=== PATIENT | female | born 1950 | race Two or more races ===

== ENCOUNTER 2017-09-06 17:13 | Inpatient (IN) | payer MEDICARE, BC ==
[~2017-09-06] VITALS: Ht 177.8 cm; Wt 129.7 kg
[2017-09-06] MEDS: IPRATROPIUM/ALBUTEROL 0.5-3(2.5)MG/3ML NEB HHN SCH (04:22)
[~2017-09-06 17:13] MED LIST: ALBU18HF2 IH; AMLO2.5T45 PO; ATOR-2 PO; CHOL100044 PO; EMPA25TA PO; FLUO-124 PO; IBUP200C5 PO; LIRA0.6P2 SQ; LORA0.5T2 PO; LOSA1TAB37 PO; METF500T4 PO; MULT-1203 PO; PROP40TA7 PO; TIOT4MIS3 IH
[2017-09-06] MEDS ORDERED: IPRA3AMP9 HHN (18:19)
[2017-09-06] MEDS ORDERED: NA PHOS,M-B/NA PHOS,DI-BA ENEMA 118ML PR PRN (19:45)
[2017-09-06] MEDS ORDERED: LACTULOSE 20G/30ML UDC PO PRN (19:45)
[2017-09-06] MEDS ORDERED: IPRATROPIUM/ALBUTEROL 0.5-3(2.5)MG/3ML NEB HHN PRN (19:45)
[2017-09-06] MEDS ORDERED: DEXTROSE 50% WATER 50ML SYRINGE IV PRN (19:45)
[2017-09-06] MEDS ORDERED: ONDANSETRON HCL 4MG/2ML VIAL IV PRN (19:45)
[2017-09-06] MEDS ORDERED: CLONIDINE 0.1MG TABLET PO PRN (19:45)
[2017-09-06] MEDS ORDERED: ACETAMINOPHEN 650MG SUPP PR PRN (19:45)
[2017-09-06 20:00] VITALS: BP 139/58
[2017-09-06] MEDS: BLOOD SUGAR DIAGNOSTIC STRIP TEST SCH (21:00)
[2017-09-06] MEDS: LOSARTAN POTASSIUM 50 MG TABLET PO SCH (21:58)
[2017-09-06] MEDS: INSULIN LISPRO 100 UNITS/ML SUBCUT SCH (22:03)
[2017-09-06] MEDS: INSULIN DETEMIR UD 100 UNITS/ML SYR SUBCUT SCH (22:04)
[2017-09-07] MEDS: HYDROCODONE/ACETAMINOPHEN 5/325MG TABLET PO PRN ×2 (00:44→21:26)
[2017-09-07] MEDS: IPRATROPIUM/ALBUTEROL 0.5-3(2.5)MG/3ML NEB HHN SCH ×7 (02:16→21:00)
[2017-09-07] MEDS: BLOOD SUGAR DIAGNOSTIC STRIP TEST SCH ×4 (06:29→21:27)
[2017-09-07] MEDS: INSULIN LISPRO 100 UNITS/ML SUBCUT SCH ×4 (07:03→21:28)
[2017-09-07 07:23] LABS: HEMATOCRIT 34.9 % (36.0-48.0); HEMOGLOBIN 11.1 g/dL (12.0-16.0); MEAN CORPUSCULAR HEMOGLOBIN 29.4 pg (28.0-32.0); MEAN CORPUSCULAR VOLUME 92.3 fL (81.0-99.0); PLATELET 285 x1000/uL (130-400); RED BLOOD CELL COUNT 3.78 mill/uL (4.2-5.4); RED CELL DISTRIBUTION WIDTH 14.4 % (11.6-14.6)
[2017-09-07 07:49] LABS: CARBON DIOXIDE 28 mEq/L (21-32); CHLORIDE 108 mEq/L (98-107)
[2017-09-07 07:50] LABS: PREALBUMIN 16.5 mg/dL (20.0-40.0)
[2017-09-07 08:00] VITALS: BP 155/85
[2017-09-07] MEDS: MUPIROCIN 2% OINT 22GM TOP SCH (09:00)
[2017-09-07] MEDS ORDERED: PANTOPRAZOLE 40MG DR TABLET PO SCH (09:00)
[2017-09-07] MEDS ORDERED: DOCUSATE SODIUM 250MG CAPSULE PO SCH (09:00)
[2017-09-07] MEDS: AMLODIPINE 5MG TABLET PO SCH (10:09)
[2017-09-07] MEDS: LOSARTAN POTASSIUM 50 MG TABLET PO SCH ×2 (10:09→21:24)
[2017-09-07] MEDS: FAMOTIDINE 20MG TABLET PO SCH ×2 (10:10→17:41)
[2017-09-07] MEDS: LACTULOSE 20G/30ML UDC PO SCH ×2 (17:00→21:00)
[2017-09-07] MEDS: DOCUSATE SODIUM 100MG CAPSULE PO SCH (17:41)
[2017-09-07 20:00] VITALS: BP 158/66
[2017-09-07] MEDS: POLYETHYLENE GLYCOL 3350 (17GM) 1 DOSE PACK PO SCH (21:00)
[2017-09-07] MEDS: ATORVASTATIN CALCIUM 20MG TABLET PO SCH (21:24)
[2017-09-07] MEDS: INSULIN DETEMIR UD 100 UNITS/ML SYR SUBCUT SCH (21:27)
[2017-09-08] MEDS: IPRATROPIUM/ALBUTEROL 0.5-3(2.5)MG/3ML NEB HHN SCH ×2 (04:00→20:38)
[2017-09-08] MEDS: BLOOD SUGAR DIAGNOSTIC STRIP TEST SCH ×4 (06:19→20:56)
[2017-09-08] MEDS: HYDROCODONE/ACETAMINOPHEN 5/325MG TABLET PO PRN ×2 (06:20→18:40)
[2017-09-08] MEDS: INSULIN LISPRO 100 UNITS/ML SUBCUT SCH ×4 (06:20→20:57)
[2017-09-08 08:00] VITALS: BP 136/51
[2017-09-08] MEDS: LACTULOSE 20G/30ML UDC PO SCH ×4 (09:00→20:56)
[2017-09-08] MEDS: DOCUSATE SODIUM 100MG CAPSULE PO SCH ×2 (09:33→16:52)
[2017-09-08] MEDS: FAMOTIDINE 20MG TABLET PO SCH ×2 (09:33→16:52)
[2017-09-08] MEDS: MUPIROCIN 2% OINT 22GM TOP SCH (09:34)
[2017-09-08] MEDS: LOSARTAN POTASSIUM 50 MG TABLET PO SCH ×2 (09:34→20:56)
[2017-09-08] MEDS: AMLODIPINE 5MG TABLET PO SCH (09:34)
[2017-09-08] MEDS: FLUOXETINE HCL 20MG CAPSULE PO SCH (10:17)
[2017-09-08 16:51] LABS: CLARITY URINE TURBID (CLEAR); COLOR URINE YELLOW (YELLOW); KETONES URINE NEGATIVE (NEGATIVE); LEUKOCYTE ESTERASE URINE 3+ (NEGATIVE); NITRITE URINE NEGATIVE (NEGATIVE); OCCULT BLOOD URINE 1+ (NEGATIVE); PROTEIN URINE 1+ (NEGATIVE); SPECIFIC GRAVITY URINE 1.016 (1.005-1.030); UROBILINOGEN URINE 0.2 E.U./dL (0.2-1.0)
[2017-09-08 20:00] VITALS: BP 150/53
[2017-09-08] MEDS: ATORVASTATIN CALCIUM 20MG TABLET PO SCH (20:56)
[2017-09-08] MEDS: POLYETHYLENE GLYCOL 3350 (17GM) 1 DOSE PACK PO SCH (20:56)
[2017-09-08] MEDS: INSULIN DETEMIR UD 100 UNITS/ML SYR SUBCUT SCH (20:57)
[2017-09-09] MEDS: IPRATROPIUM/ALBUTEROL 0.5-3(2.5)MG/3ML NEB HHN SCH ×4 (00:30→07:25)
[2017-09-09] MEDS: BLOOD SUGAR DIAGNOSTIC STRIP TEST SCH ×4 (06:37→21:22)
[2017-09-09] MEDS: INSULIN LISPRO 100 UNITS/ML SUBCUT SCH ×4 (06:43→21:35)
[2017-09-09 08:11] VITALS: BP 140/72
[2017-09-09] MEDS: AMLODIPINE 5MG TABLET PO SCH (08:45)
[2017-09-09] MEDS: FAMOTIDINE 20MG TABLET PO SCH ×2 (08:45→17:32)
[2017-09-09] MEDS: DOCUSATE SODIUM 100MG CAPSULE PO SCH ×2 (08:45→17:32)
[2017-09-09] MEDS: FLUOXETINE HCL 20MG CAPSULE PO SCH (08:45)
[2017-09-09] MEDS: MUPIROCIN 2% OINT 22GM TOP SCH (08:45)
[2017-09-09] MEDS: LACTULOSE 20G/30ML UDC PO SCH ×3 (08:46→17:00)
[2017-09-09] MEDS: LOSARTAN POTASSIUM 50 MG TABLET PO SCH ×2 (08:46→21:21)
[2017-09-09 10:23] LABS: BASOPHILS % 0.5 % (0.0-2.0); EOSINOPHILS % 3.4 % (0.0-5.0); HEMOGLOBIN. 11.4 g/dL (12.0-16.0); LYMPHOCYTES % 17.3 % (20.0-50.0); MEAN CORPUSCULAR HEMOGLOBIN 29.6 pg (28.0-32.0); MEAN CORPUSCULAR VOLUME 90.9 fL (81.0-99.0); MEAN PLATELET VOLUME 8.6 fl (7.4-10.4); MONOCYTES % 4.9 % (2.0-8.0); NEUTROPHILS % 73.9 % (40.0-76.0); PLATELET 353 x1000/uL (130-400); RED BLOOD CELL COUNT 3.85 mill/uL (4.2-5.4); RED CELL DISTRIBUTION WIDTH 14.6 % (11.6-14.6)
[2017-09-09 10:54] LABS: CARBON DIOXIDE 28 mEq/L (21-32); CHLORIDE 106 mEq/L (98-107); LDL CHOLESTEROL 106 mg/dL (5-100); PHOSPHORUS 2.7 mg/dL (2.5-4.9); TOTAL IRON BINDING CAPACITY 191 ug/dL (250-450)
[2017-09-09 11:45] LABS: HDL CHOLESTEROL 55 mg/dL (40-59)
[2017-09-09] MEDS: FERROUS SULFATE 325MG TABLET PO SCH ×2 (13:03→17:32)
[2017-09-09 14:49] LABS: FOLIC ACID (FOLATE) SERUM 18.7 ng/mL (>5.38)
[2017-09-09 20:00] VITALS: BP 143/57
[2017-09-09] MEDS: HYDROCODONE/ACETAMINOPHEN 5/325MG TABLET PO PRN (20:22)
[2017-09-09] MEDS: POLYETHYLENE GLYCOL 3350 (17GM) 1 DOSE PACK PO SCH (21:00)
[2017-09-09] MEDS: ATORVASTATIN CALCIUM 20MG TABLET PO SCH (21:17)
[2017-09-09] MEDS: LEVOFLOXACIN 500MG TABLET PO SCH (21:21)
[2017-09-09] MEDS: INSULIN DETEMIR UD 100 UNITS/ML SYR SUBCUT SCH (21:34)
[2017-09-10] MEDS: BLOOD SUGAR DIAGNOSTIC STRIP TEST SCH ×4 (06:15→21:50)
[2017-09-10] MEDS: INSULIN LISPRO 100 UNITS/ML SUBCUT SCH ×4 (06:34→21:51)
[2017-09-10 08:00] VITALS: BP 171/84
[2017-09-10] MEDS: MUPIROCIN 2% OINT 22GM TOP SCH (08:41)
[2017-09-10] MEDS: FAMOTIDINE 20MG TABLET PO SCH ×2 (08:42→16:51)
[2017-09-10] MEDS: LOSARTAN POTASSIUM 50 MG TABLET PO SCH ×2 (08:42→21:53)
[2017-09-10] MEDS: FLUOXETINE HCL 20MG CAPSULE PO SCH (08:42)
[2017-09-10] MEDS: AMLODIPINE 5MG TABLET PO SCH (08:42)
[2017-09-10] MEDS: DOCUSATE SODIUM 100MG CAPSULE PO SCH ×2 (08:42→16:51)
[2017-09-10] MEDS: FERROUS SULFATE 325MG TABLET PO SCH ×2 (08:42→16:51)
[2017-09-10] MEDS: IPRATROPIUM/ALBUTEROL 0.5-3(2.5)MG/3ML NEB HHN SCH (09:00)
[2017-09-10] MEDS: LEVOFLOXACIN 500MG TABLET PO SCH (11:56)
[2017-09-10] MEDS: HYDROCODONE/ACETAMINOPHEN 5/325MG TABLET PO PRN (19:33)
[2017-09-10 20:00] VITALS: BP 150/73
[2017-09-10] MEDS: POLYETHYLENE GLYCOL 3350 (17GM) 1 DOSE PACK PO SCH (21:00)
[2017-09-10] MEDS: ATORVASTATIN CALCIUM 20MG TABLET PO SCH (21:49)
[2017-09-10] MEDS: INSULIN DETEMIR UD 100 UNITS/ML SYR SUBCUT SCH (21:50)
[2017-09-10] MEDS: LORAZEPAM 0.5MG TABLET PO PRN (23:26)
[2017-09-11] MEDS: BLOOD SUGAR DIAGNOSTIC STRIP TEST SCH ×4 (07:06→21:25)
[2017-09-11] MEDS: INSULIN LISPRO 100 UNITS/ML SUBCUT SCH ×4 (07:07→21:44)
[2017-09-11 08:00] VITALS: BP 116/68
[2017-09-11] MEDS: DOCUSATE SODIUM 100MG CAPSULE PO SCH ×2 (08:13→16:48)
[2017-09-11] MEDS: FAMOTIDINE 20MG TABLET PO SCH ×2 (08:13→16:48)
[2017-09-11] MEDS: LOSARTAN POTASSIUM 50 MG TABLET PO SCH ×2 (08:13→21:23)
[2017-09-11] MEDS: FERROUS SULFATE 325MG TABLET PO SCH ×2 (08:13→16:48)
[2017-09-11] MEDS: FLUOXETINE HCL 20MG CAPSULE PO SCH (08:13)
[2017-09-11] MEDS: MUPIROCIN 2% OINT 22GM TOP SCH (08:15)
[2017-09-11] MEDS: AMLODIPINE 5MG TABLET PO SCH (08:16)
[2017-09-11 09:53] LABS: BASOPHILS % 0.7 % (0.0-2.0); HEMATOCRIT. 36.4 % (36.0-48.0); HEMOGLOBIN. 11.4 g/dL (12.0-16.0); LYMPHOCYTES % 19.7 % (20.0-50.0); MEAN CORPUSCULAR HEMOGLOBIN 28.9 pg (28.0-32.0); MEAN PLATELET VOLUME 7.8 fl (7.4-10.4); MONOCYTES % 6.1 % (2.0-8.0); NEUTROPHILS % 69.5 % (40.0-76.0); PLATELET 381 x1000/uL (130-400); RED BLOOD CELL COUNT 3.96 mill/uL (4.2-5.4); RED CELL DISTRIBUTION WIDTH 14.7 % (11.6-14.6)
[2017-09-11 09:57] LABS: CHLORIDE 106 mEq/L (98-107)
[2017-09-11 10:02] LABS: CARBON DIOXIDE 29 mEq/L (21-32)
[2017-09-11] MEDS: LEVOFLOXACIN 500MG TABLET PO SCH (11:20)
[2017-09-11] MEDS: SULFAMETHOXAZOLE/TRIMETHOPRIM 800/160MG TABLET PO SCH ×2 (13:17→21:22)
[2017-09-11 20:00] VITALS: BP 145/76
[2017-09-11] MEDS: POLYETHYLENE GLYCOL 3350 (17GM) 1 DOSE PACK PO SCH (21:00)
[2017-09-11] MEDS: LORAZEPAM 0.5MG TABLET PO PRN (21:23)
[2017-09-11] MEDS: ATORVASTATIN CALCIUM 20MG TABLET PO SCH (21:23)
[2017-09-11] MEDS: INSULIN DETEMIR UD 100 UNITS/ML SYR SUBCUT SCH (21:47)
[2017-09-12] MEDS: BLOOD SUGAR DIAGNOSTIC STRIP TEST SCH ×4 (06:09→21:51)
[2017-09-12] MEDS: INSULIN LISPRO 100 UNITS/ML SUBCUT SCH ×4 (06:15→21:50)
[2017-09-12 08:00] VITALS: BP 189/85
[2017-09-12] MEDS: FERROUS SULFATE 325MG TABLET PO SCH ×2 (08:26→18:47)
[2017-09-12] MEDS: DOCUSATE SODIUM 100MG CAPSULE PO SCH ×2 (08:26→18:46)
[2017-09-12] MEDS: SULFAMETHOXAZOLE/TRIMETHOPRIM 800/160MG TABLET PO SCH ×2 (08:26→21:32)
[2017-09-12] MEDS: FAMOTIDINE 20MG TABLET PO SCH ×2 (08:26→18:47)
[2017-09-12] MEDS: FLUOXETINE HCL 20MG CAPSULE PO SCH (08:27)
[2017-09-12] MEDS: LOSARTAN POTASSIUM 50 MG TABLET PO SCH ×2 (08:27→21:33)
[2017-09-12] MEDS: MUPIROCIN 2% OINT 22GM TOP SCH (08:27)
[2017-09-12] MEDS: AMLODIPINE 5MG TABLET PO SCH (08:27)
[2017-09-12 20:00] VITALS: BP 142/72
[2017-09-12] MEDS: POLYETHYLENE GLYCOL 3350 (17GM) 1 DOSE PACK PO SCH (21:00)
[2017-09-12] MEDS ORDERED: LORAZEPAM 0.5MG TABLET PO PRN (21:30)
[2017-09-12] MEDS: ATORVASTATIN CALCIUM 20MG TABLET PO SCH (21:32)
[2017-09-12] MEDS: DIPHENHYDRAMINE HCL/ZINC ACET 28 GM CREAM TOP PRN (21:32)
[2017-09-12] MEDS: INSULIN DETEMIR UD 100 UNITS/ML SYR SUBCUT SCH (21:51)
[2017-09-13] MEDS: BLOOD SUGAR DIAGNOSTIC STRIP TEST SCH ×4 (06:27→20:52)
[2017-09-13] MEDS: INSULIN LISPRO 100 UNITS/ML SUBCUT SCH ×4 (06:33→21:02)
[2017-09-13 08:00] VITALS: BP 148/64
[2017-09-13] MEDS: FLUOXETINE HCL 20MG CAPSULE PO SCH (09:26)
[2017-09-13] MEDS: LOSARTAN POTASSIUM 50 MG TABLET PO SCH ×2 (09:26→20:52)
[2017-09-13] MEDS: FERROUS SULFATE 325MG TABLET PO SCH ×2 (09:26→17:03)
[2017-09-13] MEDS: DOCUSATE SODIUM 100MG CAPSULE PO SCH ×2 (09:26→17:03)
[2017-09-13] MEDS: SULFAMETHOXAZOLE/TRIMETHOPRIM 800/160MG TABLET PO SCH ×2 (09:26→20:52)
[2017-09-13] MEDS: AMLODIPINE 5MG TABLET PO SCH (09:26)
[2017-09-13] MEDS: FAMOTIDINE 20MG TABLET PO SCH ×2 (09:26→17:03)
[2017-09-13] MEDS: MUPIROCIN 2% OINT 22GM TOP SCH (09:27)
[2017-09-13] MEDS: DIPHENHYDRAMINE HCL/ZINC ACET 28 GM CREAM TOP PRN (09:27)
[2017-09-13 20:00] VITALS: BP 154/61
[2017-09-13] MEDS: ATORVASTATIN CALCIUM 20MG TABLET PO SCH (20:52)
[2017-09-13] MEDS: POLYETHYLENE GLYCOL 3350 (17GM) 1 DOSE PACK PO SCH (21:00)
[2017-09-13] MEDS: INSULIN DETEMIR UD 100 UNITS/ML SYR SUBCUT SCH (21:03)
[2017-09-14] MEDS ORDERED: LORAZEPAM 0.5MG TABLET PO PRN (03:00)
[2017-09-14] MEDS: BLOOD SUGAR DIAGNOSTIC STRIP TEST SCH ×4 (06:28→21:34)
[2017-09-14] MEDS: INSULIN LISPRO 100 UNITS/ML SUBCUT SCH ×4 (06:30→21:00)
[2017-09-14 07:10] LABS: BASOPHILS % 0.6 % (0.0-2.0); EOSINOPHILS % 4.4 % (0.0-5.0); HEMATOCRIT. 32.9 % (36.0-48.0); HEMOGLOBIN. 10.9 g/dL (12.0-16.0); MEAN CORPUSCULAR HEMOGLOBIN 30.2 pg (28.0-32.0); MEAN CORPUSCULAR VOLUME 91.4 fL (81.0-99.0); MEAN PLATELET VOLUME 7.9 fl (7.4-10.4); MONOCYTES % 6.3 % (2.0-8.0); NEUTROPHILS % 66.7 % (40.0-76.0); PLATELET 329 x1000/uL (130-400); RED BLOOD CELL COUNT 3.61 mill/uL (4.2-5.4); RED CELL DISTRIBUTION WIDTH 14.1 % (11.6-14.6)
[2017-09-14 08:00] VITALS: BP 167/78
[2017-09-14] MEDS: FAMOTIDINE 20MG TABLET PO SCH ×2 (08:49→17:34)
[2017-09-14] MEDS: AMLODIPINE 5MG TABLET PO SCH ×2 (08:49→21:34)
[2017-09-14] MEDS: FLUOXETINE HCL 20MG CAPSULE PO SCH (08:49)
[2017-09-14] MEDS: DOCUSATE SODIUM 100MG CAPSULE PO SCH ×2 (08:49→17:34)
[2017-09-14] MEDS: FERROUS SULFATE 325MG TABLET PO SCH ×2 (08:49→17:34)
[2017-09-14] MEDS: SULFAMETHOXAZOLE/TRIMETHOPRIM 800/160MG TABLET PO SCH ×2 (08:49→21:33)
[2017-09-14] MEDS: LOSARTAN POTASSIUM 50 MG TABLET PO SCH ×2 (08:49→21:34)
[2017-09-14] MEDS: MUPIROCIN 2% OINT 22GM TOP SCH (08:50)
[2017-09-14] MEDS: DIPHENHYDRAMINE HCL/ZINC ACET 28 GM CREAM TOP PRN (08:56)
[2017-09-14] MEDS ORDERED: HYDROCODONE/ACETAMINOPHEN 5/325MG TABLET PO PRN (09:01)
[2017-09-14 09:11] LABS: 25-HYDROXY VITAMIN D3 44 ng/mL (.)
[2017-09-14 10:18] VITALS: BP 156/75
[2017-09-14 20:00] VITALS: BP 147/68
[2017-09-14] MEDS: POLYETHYLENE GLYCOL 3350 (17GM) 1 DOSE PACK PO SCH (21:00)
[2017-09-14] MEDS: ATORVASTATIN CALCIUM 20MG TABLET PO SCH (21:33)
[2017-09-14] MEDS: INSULIN DETEMIR UD 100 UNITS/ML SYR SUBCUT SCH (21:48)
[2017-09-15] MEDS: BLOOD SUGAR DIAGNOSTIC STRIP TEST SCH ×4 (06:14→21:15)
[2017-09-15] MEDS: INSULIN LISPRO 100 UNITS/ML SUBCUT SCH ×4 (06:29→21:14)
[2017-09-15 08:00] VITALS: BP 134/74
[2017-09-15] MEDS: DOCUSATE SODIUM 100MG CAPSULE PO SCH ×2 (09:06→17:47)
[2017-09-15] MEDS: FAMOTIDINE 20MG TABLET PO SCH ×2 (09:07→17:47)
[2017-09-15] MEDS: FERROUS SULFATE 325MG TABLET PO SCH ×2 (09:07→17:47)
[2017-09-15] MEDS: FLUOXETINE HCL 20MG CAPSULE PO SCH (09:07)
[2017-09-15] MEDS: SULFAMETHOXAZOLE/TRIMETHOPRIM 800/160MG TABLET PO SCH ×2 (09:08→20:10)
[2017-09-15] MEDS: AMLODIPINE 5MG TABLET PO SCH ×2 (09:08→20:10)
[2017-09-15] MEDS: MUPIROCIN 2% OINT 22GM TOP SCH (09:09)
[2017-09-15] MEDS: DIPHENHYDRAMINE HCL/ZINC ACET 28 GM CREAM TOP PRN (09:09)
[2017-09-15] MEDS: LOSARTAN POTASSIUM 50 MG TABLET PO SCH ×2 (09:09→20:10)
[2017-09-15 19:24] VITALS: BP 155/66
[2017-09-15] MEDS: ATORVASTATIN CALCIUM 20MG TABLET PO SCH (20:10)
[2017-09-15] MEDS: POLYETHYLENE GLYCOL 3350 (17GM) 1 DOSE PACK PO SCH (20:11)
[2017-09-15] MEDS: INSULIN DETEMIR UD 100 UNITS/ML SYR SUBCUT SCH (23:26)
[2017-09-16] MEDS: BLOOD SUGAR DIAGNOSTIC STRIP TEST SCH ×2 (06:18→11:56)
[2017-09-16] MEDS: INSULIN LISPRO 100 UNITS/ML SUBCUT SCH ×2 (06:22→12:35)
[2017-09-16 08:00] VITALS: BP 173/76
[2017-09-16] MEDS: DOCUSATE SODIUM 100MG CAPSULE PO SCH (08:33)
[2017-09-16] MEDS: FLUOXETINE HCL 20MG CAPSULE PO SCH (08:33)
[2017-09-16] MEDS: FAMOTIDINE 20MG TABLET PO SCH (08:33)
[2017-09-16] MEDS: FERROUS SULFATE 325MG TABLET PO SCH (08:33)
[2017-09-16] MEDS: SULFAMETHOXAZOLE/TRIMETHOPRIM 800/160MG TABLET PO SCH (08:33)
[2017-09-16] MEDS: LOSARTAN POTASSIUM 50 MG TABLET PO SCH (08:33)
[2017-09-16] MEDS: AMLODIPINE 5MG TABLET PO SCH (08:34)
[2017-09-16] MEDS: MUPIROCIN 2% OINT 22GM TOP SCH (08:45)
[2017-09-16 11:14] VITALS: BP 160/78
== END 2017-09-16 13:15 | disposition home health service (06) | DRG 73 ==
PROVIDERS: ADMIT Physical Medicine & Rehabilitation Spinal Cord Injury Medicine; ATTEND Family Medicine Adult Medicine
DX: G62.81 Critical illness polyneuropathy (principal); A41.51 Sepsis due to Escherichia coli [E. coli]; J96.02 Acute respiratory failure with hypercapnia; G13.0 Paraneoplastic neuromyopathy and neuropathy; E87.0 Hyperosmolality and hypernatremia; C34.90 Malignant neoplasm of unspecified part of unspecified bronchus or lung; R13.10 Dysphagia, unspecified; E66.01 Morbid (severe) obesity due to excess calories; E11.65 Type 2 diabetes mellitus with hyperglycemia; E86.0 Dehydration; L02.411 Cutaneous abscess of right axilla; N39.0 Urinary tract infection, site not specified; Z68.41 Body mass index [BMI] 40.0-44.9, adult; E11.42 Type 2 diabetes mellitus with diabetic polyneuropathy; E78.1 Pure hyperglyceridemia; J45.909 Unspecified asthma, uncomplicated; I10 Essential (primary) hypertension; E78.5 Hyperlipidemia, unspecified; D64.9 Anemia, unspecified; R59.1 Generalized enlarged lymph nodes; R53.81 Other malaise; E78.00 Pure hypercholesterolemia, unspecified; R26.9 Unspecified abnormalities of gait and mobility; K59.00 Constipation, unspecified; Z98.84 Bariatric surgery status; Z90.2 Acquired absence of lung [part of]; Z88.6 Allergy status to analgesic agent
CPT/HCPCS: 36415; 80048; 80053; 80061; 81001; 82270; 82306; 82607; 82728; 82746; 82962; 83036; 83540; 83550; 83735; 84100; 84134; 84443; 84630; 85025; 85027; 87077; 87086; 87186; 92610; 93970; 94640; 97110; 97112; 97116; 97163; 97166; 97530; 97535; J1815; J7620